=== PATIENT | female | born 1945 | race Caucasian/White ===

== ENCOUNTER → 2019-11-18 10:11 | Outpatient (BNVA) | payer MEDICARE, SELFPAY | PROVIDERS: Family Provider Family Medicine; PCP Family Medicine; Visit Provider Nurse Practitioner Family | DX: M25.561 Pain in right knee (principal); M22.41 Chondromalacia patellae, right knee | CPT/HCPCS: 73562 ==

== ENCOUNTER → 2020-01-02 09:02 | Outpatient (BNVA) | payer MEDICARE, SELFPAY | PROVIDERS: Family Provider Family Medicine; PCP Family Medicine; Visit Provider Family Medicine | DX: E78.5 Hyperlipidemia, unspecified (principal); F41.1 Generalized anxiety disorder; I10 Essential (primary) hypertension; E55.9 Vitamin D deficiency, unspecified; R53.83 Other fatigue; J44.9 Chronic obstructive pulmonary disease, unspecified; Z72.0 Tobacco use; N18.9 Chronic kidney disease, unspecified; H61.22 Impacted cerumen, left ear; E78.2 Mixed hyperlipidemia; N18.3 Chronic kidney disease, stage 3 (moderate) | CPT/HCPCS: 80053; 80061; 82652; 85025 ==

== ENCOUNTER → 2020-08-01 10:05 | Outpatient (BNVA) | payer MEDICARE, SELFPAY | PROVIDERS: Family Provider Family Medicine; PCP Family Medicine; Visit Provider Family Medicine | DX: Z23 Encounter for immunization (principal); F41.1 Generalized anxiety disorder; J44.9 Chronic obstructive pulmonary disease, unspecified; E55.9 Vitamin D deficiency, unspecified; R53.83 Other fatigue; I12.9 Hypertensive chronic kidney disease with stage 1 through stage 4 chronic kidney disease, or unspecified chronic kidney disease; N18.30 Chronic kidney disease, stage 3 unspecified; E78.5 Hyperlipidemia, unspecified | CPT/HCPCS: 80053; 82652; 83540; 83735; 84100; 85025 ==

== ENCOUNTER → 2020-12-25 09:05 | Outpatient (BNVA) | payer MEDICARE, SELFPAY | PROVIDERS: Family Provider Family Medicine; PCP Family Medicine; Visit Provider Family Medicine | DX: Z12.39 Encounter for other screening for malignant neoplasm of breast (principal); F41.1 Generalized anxiety disorder; E78.5 Hyperlipidemia, unspecified; E78.2 Mixed hyperlipidemia; Z12.11 Encounter for screening for malignant neoplasm of colon; M19.041 Primary osteoarthritis, right hand; M19.042 Primary osteoarthritis, left hand; Z86.010 Personal history of colon polyps; Z12.31 Encounter for screening mammogram for malignant neoplasm of breast; N18.30 Chronic kidney disease, stage 3 unspecified | CPT/HCPCS: 80053; 80061 ==

== ENCOUNTER 2021-01-16 14:58 | Outpatient (CLI) | payer MEDICARE, SELFPAY ==
--- NOTE | 2021-01-16 15:30 | MM_ITS ---
WS: [id number] Bilateral screening digital mammogram, 01/16/2021 Clinical Data: Z12.39 - Encounter for other screening for malignant neoplasm of breast Comparison: 12/22/2018. Findings: The breast parenchymal pattern shows fat replacement. No spiculated masses or clustered calcification s are seen. There are no secondary signs of carcinoma. MM/[place] [id number] Impression: 1. Negative bilateral mammogram unchanged. 2. Recommend annual screening mammograms. BIRADS: 1-Negative FOLLOW UP: 1 Year Follow-up The CAD store clerk checker was used.
== END 2021-01-16 14:59 | disposition home or self-care (01) ==
LOC: RADSHAW 15:00
PROVIDERS: PCP Family Medicine; Visit Provider Family Medicine
DX: Z12.39 Encounter for other screening for malignant neoplasm of breast (principal)
CPT/HCPCS: 77067

== ENCOUNTER → 2021-01-25 15:25 | Outpatient (BNVA) | payer MEDICARE, SELFPAY | PROVIDERS: PCP Family Medicine; Visit Provider Surgery | DX: Z86.010 Personal history of colon polyps (principal); Z20.822 Contact with and (suspected) exposure to COVID-19 | CPT/HCPCS: 87635 ==

== ENCOUNTER 2021-01-31 08:49 | Day surgery (SDC) | payer MEDICARE, SELFPAY ==
[2021-01-29 17:19] VITALS: BMI 32.5
--- NOTE | 2021-01-31 09:21 | ANES.PREANE2 ---
Pre-Anesthetic Assessment Pre-Anesthetic Assessment: Height/Weight: Height 1.6 m Weight 83.461 kg Preop Diagnosis: screening colonoscopy Proposed Procedure: Operation Date: 01/31/21 10:30 Proposed Procedures p Colonoscopy 19682 Z86.010(Not Applicable) - Mir Antonio MD Was Beta Lizeth taken within 24 hours: N/A Was Clonidine taken within 24 hours: N/A Social: Social History: Tobacco and No alcohol Exam: Pre-Anes Outpt Exam: alert, oriented x 3 and regular rate & rhythm Additional Exam Findings (including area of procedure): Scattered late expiratory wheezes; clear post tussive Airway: Submandibular: WNL Cervical ROM: WNL MP: 1 CV/HEM: CV/HEM: None reported : : Chronic renal Insufficiency Hepatic: Hepatic: None reported GI: GI: None reported Metabolic: Metabolic: Hyperlipidemia Musc/skel: Musc/skel: None reported Neuropsych: Neuropsych: None reported Anesthetic Plan: ASA status: 3 Anesthesia: MAC PFSH Anesthesia PFSH: Medical History CKD (chronic kidney disease) NAHED (generalized anxiety disorder) Hx of adenomatous polyp of colon Hyperlipidemia Hypertension Vitamin D deficiency Surgical History H/O neck surgery Branchial cyst removal Status post colonoscopy with polypectomy Family History Father Cancer lung Family/Other Cancer sister-breast Denies family history of Anesthesia complication Bleeding disorder Social History Smoking and tobacco status: current every day smoker cigarettes Packs smoked per day: 0.25 Quit status (tobacco): not considering quitting Second hand smoke exposure: No Alcohol intake: current Alcohol intake frequency: holidays/special occasions only Desire information about alcohol rehabilitation?: No Desire information about substance/drug rehabilitation?: No History of recent travel: No Data Anesthesia Cardiac Studies: No Data to Display
[2021-01-31 09:49] VITALS: BP 137/86; PULSE 68; RESP 18; TEMP 36; O2SAT 96
[2021-01-31] MEDS: sodium chloride 0.9% 1,000 ML 30 ML IV (09:59)
--- NOTE | 2021-01-31 10:02 | PC.NURSE ---
Dentures placed in denture cup, put with personal belongings. Jewelry given to .
--- NOTE | 2021-01-31 10:35 | W.PM.OPSUD ---
Surgery/Procedure H&P Update DATE OF PROCEDURE: January 31, 2021 DATE H&P PERFORMED: 01/08/21 H&P UPDATE INFORMATION: I have reviewed H&P completed within last 30 days, I have examined patient prior to procedure and No changes to prior documentation PREOP DIAGNOSIS: screening colonoscopy PLANNED PROCEDURE: Operation Date: 01/31/21 10:30 Proposed Procedures p Colonoscopy 90962 Z86.010(Not Applicable) - Mir Antonio MD
--- NOTE | 2021-01-31 11:56 | ANE.PACU2 ---
Inpatient post-anesthesia follow up: Airway intact: Yes Vital signs: Temperature 96.8 F Pulse Rate 68 Respiratory Rate 18 Blood Pressure 137/86 Pulse Oximetry 96 Oxygen Delivery Me thod Room Air Oxygen Flow Rate Fraction of Inspir ed Oxygen Hydration adequate: Yes Nausea and vomiting: No Pain level: 1 Mental status: Baseline
[2021-01-31 11:57] VITALS: BP 129/75; PULSE 58; RESP 16; TEMP 36.1; O2SAT 94
[2021-01-31 12:09] VITALS: BP 125/66; PULSE 54; RESP 16; O2SAT 96
== END 2021-01-31 12:22 | disposition home or self-care (01) ==
PROVIDERS: PCP Family Medicine; Visit Provider Surgery
PROC: 0DJD8ZZ Inspection of Lower Intestinal Tract, Via Natural or Artificial Opening Endoscopic (ICD-10-PCS; CPT 45378; principal; 2021-01-31 10:30)
DX: Z12.11 Encounter for screening for malignant neoplasm of colon (principal); Z86.010 Personal history of colon polyps; I12.9 Hypertensive chronic kidney disease with stage 1 through stage 4 chronic kidney disease, or unspecified chronic kidney disease; N18.9 Chronic kidney disease, unspecified; F41.9 Anxiety disorder, unspecified; E78.5 Hyperlipidemia, unspecified; E55.9 Vitamin D deficiency, unspecified; F17.210 Nicotine dependence, cigarettes, uncomplicated; K57.30 Diverticulosis of large intestine without perforation or abscess without bleeding
CPT/HCPCS: 45385; 88305; 96360; 96361; J2704; J7030

== ENCOUNTER → 2021-06-25 09:39 | Outpatient (BNVA) | payer MEDICARE, SELFPAY | PROVIDERS: Family Provider Family Medicine; PCP Family Medicine; Visit Provider Family Medicine | DX: N18.30 Chronic kidney disease, stage 3 unspecified (principal) | CPT/HCPCS: 80053; 85025 ==

== ENCOUNTER → 2021-10-29 11:30 | Outpatient (BNVA) | payer MEDICARE, SELFPAY | PROVIDERS: Family Provider Family Medicine; PCP Family Medicine; Visit Provider Nurse Practitioner Family | DX: Z20.822 Contact with and (suspected) exposure to COVID-19 (principal) | CPT/HCPCS: 87635 ==

== ENCOUNTER → 2021-12-24 10:32 | Outpatient (BNVA) | payer MEDICARE, SELFPAY | PROVIDERS: Family Provider Family Medicine; PCP Family Medicine; Visit Provider Family Medicine | DX: I10 Essential (primary) hypertension (principal); F41.1 Generalized anxiety disorder; M19.041 Primary osteoarthritis, right hand; M19.042 Primary osteoarthritis, left hand; E78.2 Mixed hyperlipidemia; R00.2 Palpitations; R00.1 Bradycardia, unspecified | CPT/HCPCS: 80053; 80061; 83735; 84443; 85025 ==

== ENCOUNTER → 2022-01-01 09:30 | Outpatient (BNVA) | payer MEDICARE, SELFPAY | PROVIDERS: Family Provider Family Medicine; PCP Family Medicine; Visit Provider Internal Medicine Cardiovascular Disease | DX: I49.3 Ventricular premature depolarization (principal); E78.2 Mixed hyperlipidemia; I12.9 Hypertensive chronic kidney disease with stage 1 through stage 4 chronic kidney disease, or unspecified chronic kidney disease; N18.30 Chronic kidney disease, stage 3 unspecified; Z87.891 Personal history of nicotine dependence; I49.1 Atrial premature depolarization; I47.1 Supraventricular tachycardia | CPT/HCPCS: 93225; 99204 ==

== ENCOUNTER 2022-02-14 09:06 | Outpatient (CLI) | payer MEDICARE, SELFPAY ==
[2022-02-14 09:23] VITALS: BMI 32.9
--- NOTE | 2022-02-14 09:24 | NMCV_ITS ---
NM asia perf SPECT r/s* [id number] Cassie Nolasco Age: 76 Gender: F : 1945 Exam Date: 02/14/2022 10:48 Ordering Phys: Caryl Orosco MD ([email or web address]) Technologist: BUBBA Moses Exam Location: [facility] Indications: CHEST PAIN STRESS TEST Please see separate stress test report in [facility] for full findings IMAGE PROTOCOL Rest/Stress 1 Lexiscan Day Radiopharmaceutical Dose (mCi) Administration Site Administered by Rest: Tc-99m 10.5 IV BUBBA Garsia Sestamibi Stress:Tc-99m 32.7 IV BUBBA Garsia Sestamibi Rest: 14-Feb-2022 60 Discovery 630 Stress: 14-Feb-2022 30 Discovery 630 0.4mg Lexiscan. Images obtained in supine and prone position. SPECT RESULTS Technical Quality: Excellent Raw Data Analysis: Normal Image Corrections: No attenuation or motion correction applied Summed Stress Score: 6 Summed Rest Score: 12 Summed Difference Score: 0 PERFUSION FINDINGS Medium sized perfusion abnormality of moderate severity of basal to apical inferior, mid inferoseptal and apical lateral dejesus on rest images with slightly improved tracer uptake in inferior and inferoseptal dejesus on supine stress images. Prone images with some reversibility in mid to apical anterior dejesus. FUNCTIONAL RESULTS (calculated via Gated SPECT) Stress Image LV EF (%): 52 Stress EDV (mL):151 TID: 0.93 Stress ESV (mL):73 FUNCTIONAL FINDINGS: The left ventricle is normal in size. Transient Ischemia Dilatation of 0.93. There is mildly reduced left ventricular systolic function. The left ventricular ejection fraction is mildly reduced with a value of 52%. There is hypokinesis of mid to apical inferior dejesus. Increased end diastolic volume. IMPRESSIONS 1. Medium sized perfusion abnormality of basal to apical inferior, mid inferoseptal and apical lateral dejesus with slightly improved tracer uptake in inferior dejesus. This may represent attenuation artifact or old infarction. 2. Small sized reversible ischemia in mid to apical anterior dejesus on prone images likely represents attenuation artifact, however small left anterior descending artery ischemia cannot be ruled out. 3.The left ventricular ejection fraction is mildly reduced with a value of 52%. 4. There is hypokinesis of mid to apical inferior dejesus. 5. EKG portion of the study will be reported separately. Caryl Orosco MD (Electronically Signed) Final Date: 15 February 2022 18:16 S
--- NOTE | 2022-02-14 09:24 | ECG_ITS ---
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 Interpretive Statements NAME OF STUDY: LEXISCAN SESTAMIBI STRESS TEST INDICATION: Chest Pain, PROCEDURE: At the baseline, the EKG revealed sinus bradycardia with a rate of 56 bpm. Poor R wave progression. Some nonspecific ST changes.. The baseline blood pressure was 118/69 mm Hg with a heart rate of beats/min. Lexiscan was infused over a period of 20 seconds. A total of 0.4 milligrams of Lexiscan was infused. The stress phase was continued for a total of 5 minutes. Heart rate at the end of the stress phase was 70 with a blood pressure 108/81 mmHg. The EKG at the peak infusion revealed no significant changes frequent ventricular ectopics were noted, during the recovery phase. Sestamibi was injected 20 seconds after the Lexiscan infusion. Blood pressure at the end of the recovery phase was 102/50 with a heart rate of 70 per minute. CONCLUSION: 1. No significant EKG changes with the LexiScan infusion 2. No LexiScan induced chest pain.occasional ventricular ectopics were noted during the Lexiscan infusion . 3. Normal blood pressure and heart rate response 4. Sestamibi/sestamibi perfusion scan pending; see separate report. Electronically Signed On 02-14-2022 13:38:20 CDT by Wendy Coello M.D. [email or web address]
[2022-02-14 11:45] VITALS: BP 102/50; PULSE 69
== END 2022-02-14 09:07 | disposition home or self-care (01) ==
LOC: CDL 09:08
PROVIDERS: PCP Family Medicine; Visit Provider Internal Medicine Cardiovascular Disease
DX: R07.9 Chest pain, unspecified (principal)
CPT/HCPCS: 78452; 93017; A9500

== ENCOUNTER 2022-02-24 13:24 | Outpatient (CLI) | payer MEDICARE, SELFPAY ==
--- NOTE | 2022-02-24 13:33 | MM_ITS ---
WS: [id number] BILATERAL 3D TOMOSYNTHESIS DIGITAL SCREENING MAMMOGRAPHY WITH CAD CLINICAL INFORMATION: SCREEN HISTORY: Screening mammogram. No current complaints. COMPARISON: January 16, 2021 TECHNIQUE: Bilateral CC and MLO views. FINDINGS: Scattered fibroglandular densities bilaterally. A few tiny incidental punctate calcifications. No le picious focal mass, asymmetry, calcifications, or architectural distortion. No evidence of malignancy . MM/[place] [id number] IMPRESSION: BI-RADS: 2-Benign FOLLOW UP: 1 Year Follow-up Recommend return to annual screening mammography.
== END 2022-02-24 13:25 | disposition home or self-care (01) ==
LOC: RAD 13:25
PROVIDERS: PCP Family Medicine; Visit Provider Family Medicine
DX: Z12.31 Encounter for screening mammogram for malignant neoplasm of breast (principal)
CPT/HCPCS: 77063; 77067

== ENCOUNTER 2022-02-26 08:30 | Outpatient (CLI) | payer MEDICARE, SELFPAY ==
--- NOTE | 2022-02-26 09:30 | USCV_ITS ---
Gaurav Cassie Age: 76 Gender: F : 1945 Exam Date: 02/26/2022 08:41 Ordering Phys: Caryl Orosco MD ([email or web address]) Technologist: Exam Location: [facility] [place] Indication: Chest pain BP: 117 / 74 HR: 56 Rhythm: Sinus Technical Quality: Adequate MEASUREMENTS (Male / Female) Normal Values 2D ECHO LV Diastolic Diameter PLAX 4.6 cm 4.2 - 5.9 / 3.9 - 5.3 cm LV Systolic Diameter PLAX 2.9 cm IVS Diastolic Thickness 1.1 cm 0.6 - 1.0 / 0.6 - 0.9 cm IVS Systolic Thickness 1.3 cm LVPW Diastolic Thickness 1.1 cm 0.6 - 1.0 / 0.6 - 0.9 cm LVPW Systolic Thickness 1.4 cm LVOT Diameter 2.0 cm LV Ejection Fraction 2D Teich 66.2 % LV Ejection Fraction MOD 2C 66.8 % LV Ejection Fraction 2C AL 67.0 % LA Diameter 3.7 cm Aorta at Sinotubular Diameter 2.8 cm IVC Diameter 1.4 cm M-MODE LV Diastolic Diameter MM 4.9 cm 4.2 - 5.9 / 3.9 - 5.3 cm LV Systolic Diameter MM 2.9 cm LV Ejection Fraction MM Teich 70.2 % IVS Diastolic Thickness MM 1.2 cm 0.6 - 1.0 / 0.6 - 0.9 cm IVS Systolic Thickness MM 1.7 cm LVPW Diastolic Thickness MM 1.1 cm 0.6 - 1.0 / 0.6 - 0.9 cm LVPW Systolic Thickness MM 1.8 cm RV Diastolic Diameter MM 1.4 cm Aortic Annulus Diameter 3.6 cm LA Ao Ratio MM 1.1 MV E Point Septal Separation 2.3 cm DOPPLER AV Peak Velocity 132.0 cm/s LVOT Peak Velocity 81.0 cm/s AV Area Cont Eq vti 2.2 cm squared AV Area Cont Eq pk 2.0 cm squared MV Area PHT 3.2 cm squared Mitral E to A Ratio 0.8 MV E' Velocity 44.5 cm/s Mitral E to MV E' Ratio 9.6 Mitral E to LV E' Lateral Ratio 9.3 Mitral E to LV E' Septal Ratio 10.1 TR Peak Velocity 184.7 cm/s TR Peak Gradient 13.6 mmHg TV Peak E Velocity 109.0 cm/s Right Atrial Pressure 3.0 mmHg Pulmonary Artery Systolic Pressu 16.6 mmHg PV Peak Velocity 94.0 cm/s FINDINGS Left Ventricle Normal left ventricular size, systolic function and wall thickness, with no regional wall motion abnormalities. Left ventricular ejection fraction is estimated at 55 %. Normal diastolic function. Right Ventricle Normal right ventricular size and systolic function. Right ventricular systolic pressure 16.6 mmHg. Right Atrium Normal right atrial size. Left Atrium Mildly increased left atrial size. Mitral Valve Structurally normal mitral valve. No mitral valve stenosis. Trace mitral valve regurgitation. Aortic Valve Structurally normal trileaflet aortic valve. No aortic valve stenosis. No aortic valve regurgitation. Tricuspid Valve Structurally normal tricuspid valve. Trace tricuspid valve regurgitation. Pulmonic Valve Structurally normal pulmonic valve. No pulmonary valve stenosis. Trace pulmonary valve regurgitation. Pericardium No pericardial effusion. Aorta Normal size aortic root and proximal ascending aorta. IVC Normal inferior vena cava. CONCLUSIONS 1. Normal left ventricular size, systolic function and wall thickness, with no regional wall motion abnormalities. Left ventricular ejection fraction is estimated at 55 %. Normal diastolic function. 2. Normal right ventricular size and systolic function. 3. No prior similar studies to compare. Caryl Orosco MD (Electronically Signed) Final Date: 02 March 2022 18:56 S
== END 2022-02-26 08:31 | disposition home or self-care (01) ==
LOC: RAD 08:32
PROVIDERS: PCP Family Medicine; Visit Provider Internal Medicine Cardiovascular Disease
DX: R06.02 Shortness of breath (principal); R00.1 Bradycardia, unspecified
CPT/HCPCS: 93306

== ENCOUNTER → 2022-04-14 15:13 | Outpatient (BNVA) | payer MEDICARE, SELFPAY | PROVIDERS: PCP Family Medicine; Visit Provider Internal Medicine Cardiovascular Disease | DX: I12.9 Hypertensive chronic kidney disease with stage 1 through stage 4 chronic kidney disease, or unspecified chronic kidney disease (principal); I49.3 Ventricular premature depolarization; R94.39 Abnormal result of other cardiovascular function study; Z87.891 Personal history of nicotine dependence | CPT/HCPCS: 99214 ==

== ENCOUNTER → 2022-04-17 11:45 | Outpatient (BNVA) | payer MEDICARE, SELFPAY | PROVIDERS: PCP Family Medicine; Visit Provider Internal Medicine Cardiovascular Disease | DX: R06.02 Shortness of breath (principal); R07.9 Chest pain, unspecified; R94.39 Abnormal result of other cardiovascular function study | CPT/HCPCS: 80048; 85025; 85610 ==

== ENCOUNTER 2022-04-22 06:00 | Outpatient (CLI) | payer MEDICARE, SELFPAY ==
[2022-04-22] VITALS (44 sets, daily range): BP systolic 123–167; BP diastolic 60–100; PULSE 41–74; RESP 12–24; TEMP 36.8; O2SAT 92–98; BMI 35.2
--- NOTE | 2022-04-22 06:00 | XACV_ITS ---
Exam Room: 2 Ht: 160 cm Wt: 90 kg BSA: 2.04 m2 Gender: Female : 1945 Any Known Allergies: Sulfa Exam Priority: Routine Procedure(s): Procedure Description: Diagnostic procedure Procedure Description: Left ventriculography Procedure Description: Coronary Angiography Diagnostic Cath Status: Elective Diagnostic Findings * 76-year-old woman with past medical history of hypertension, frequent PVCs and NSVT with 31% PVC burden on Holter monitor and PSVT. Stress test with possible reversible ischemia in mid to apical anterior dejesus. . * Angiography shows a right coronary dominant system. * Normal caliber left main free of any disease. * Medium caliber left anterior descending artery with no disease. * Medium caliber circumflex artery with one major high obtuse marginal branch. Mid circumflex with mild 30% stenosis.. * Medium caliber dominant right coronary artery with * minor luminal irregularities in proximal segment. Conclusions 1. Angiography shows a right coronary dominant system. 2. Mild coronary artery disease in mid circumflex artery. 3. Minor luminal irregularities in proximal right coronary artery. Recommendations * Statin and aspirin 81mg lifelong, if tolerated. Diagnostic RX Recommendation: medical therapy and/or counseling LV EDP: 12 mmHg Left Ventriculography Findings: * Left Ventriculogram not performed to minimize contrast use. Pressures Phase:Rest AO : 159 / 76 ( 105 ) @ 8:22:00 AM 171 / 57 ( 107 ) @ 8:30:00 AM 161 / 39 ( 100 ) @ 8:30:00 AM LV : 155 / 0 / 12 @ 8:30:00 AM 153 / 1 / 14 @ 8:30:00 AM Valves Phase:DefaultPhase AV : 0.0 @ 7:37:17 AM AV Mean Gradient: 0.0 @ 7:37:17 AM Clinical Evaluation EBL: 5mL-10mL Procedural Details Pre-Procedure Time Out. Identified patient by full name and date of as verbalized by the patient/guarantor. Does the consent match the physician's order: Yes. Accurate & Complete Informed Consent: Yes. Inpatient/Outpatient History & Physical on Chart: Yes. If H&P is completed, is and addenduem needed: No. Visualize and Verify Site with Patient/Guarantor: N/A. Relevant Radiology Images available: Yes. Pre-op teaching completed and patient verbalized understanding. The risks, benefits, and alternatives of sedation and/or procedure were discussed by physician. The patient agrees to continue. Procedure started. [facility] Clinical Fraility Score: 3: Managing Well. Stacker Operator Indications: Other; Abnormal stress test/PVCs. Chest Pain Symptom Assessment: Asymptomatic. Cardiovascular Instability: No. Correct patient, site and procedure confirmed by cath team. PERRLA. Strong, equal hand gold buyer bilaterally. Lungs clear x 5 lobes. IV Site on Arrival: 20 gauge in the right anticubital. IV Fluids: 0.9% NaCl at KVO. 0 mL infused prior to agriculture laborer. Pre Procedural Pulses: bilateral dorsalis pedis was 2+. Pre Procedural Pulses: bilateral posterior tibial was 2+. Pre Procedural Pulses: bilateral radial was 3+. Oxygen started at 2liters/min via nasal canula. right groin was prepped with chloroprep then draped in the usual sterile fashion. right radial was prepped with chloroprep then draped in the usual sterile fashion. Physician notified. Physician arrived. Patient's family in CPRU. Dr. Orosco will update at the completion of the procedure. Physician scrubbed in. Immediate Pre-Procedure Time Out. Correct Patient: Yes; Correct Procedure: Yes; Correct Site: Yes; Correct Patient Position: Yes; Correct Supplies: Yes; Dried Flammable Prep: Yes; Blood Products Available: N/A;. Lidocaine 1% infiltrated to the right radial. Arterial access obtained. A 5 new zealander TIG catheter in over wire. Baseline sample Acquired. HR: 62 BPM. Multiple views taken of left coronary artery. Catheter redirected to the RCA. Multiple views taken of right coronary artery. Catheter redirected to the LV. EDP Sample taken: LV 155/0,12; HR: 65 BPM; SpO2: 97%. Pullback taken: LV 153/1,14; AO 171/57(107); Mean: 0mmHg, Peak to Peak: 0mmHg, SEP: 5sec/min; HR: 52 BPM; SpO2: 97%. Catheter removed over the standard wire. Dr. Orosco scrubbed out. TR band placed. Hemostasis obtained. Post Procedure: Pulses reassessed and unchanged. PERRLA. Strong, equal hand gold buyer bilaterally. No VTE prophylaxis required. Medication's Wasted: Lidocaine 1% = 2 mL. Medication's Wasted: Nitro = 49.8 mg. Medication's Wasted: Heparin = 1000 units. Total IV fluids: 30 mL. A TR Band was successful obtaining hemostatsis at the Right Radial artery insertion site. Post-op diagnosis: Normal Coronaries. Complications: none. Estimated blood loss: 5mL-10mL. Responsiveness - Normal response to verbal stimuli; alert and oriented, PERRLA. Airway - Unaffected, no intervention required; spontaneous ventilation. Circulation: W/N/L, pulses unchanged. Nausea/Vomiting: No. Procedure completed. Patient transferred by wheelchair to 1st floor. Vital chart was stopped. Access Site Site: Right Radial artery Sheath Size: 6 Fr Hemostasis Method: TR Band Hemostasis Success: Successful Procedure Medications Start: 7:13 AM Stop: 7:13 AM Medication: Versed Amount: 1 mg Route: I.V. Start: 7:13 AM Stop: 7:13 AM Medication: Fentanyl Amount: 50 mcg Route: I.V. Start: 7:18 AM Stop: 7:18 AM Medication: Nitrogylcerin Amount: 200 mcg Route: I.A. Start: 7:21 AM Stop: 7:21 AM Medication: Heparin Amount: 5000 units Route: I.V. I, the attending physician, have reviewed and verified all procedure medications. Yes, all medications given per verbal order History/Risk Factors Hypertension: Yes Dyslipidemia: Yes Peripheral Arterial Disease (PAD): No Myocardial Infarction (OR): No Obesity: Yes Renal Disease: No Tobacco Use: Former Prior Interventions PCI: No CABG: No Valve Surgery: No Report Signatures Finalized by Caryl Orosco MD on 05/03/2022 12:58 PM
[2022-04-22] MEDS: diphenhydrAMINE 50 mg Capsule PO (06:46)
--- NOTE | 2022-04-22 07:04 | W.PM.OPSUD ---
Surgery/Procedure H&P Update DATE OF PROCEDURE: April 22, 2022 DATE H&P PERFORMED: 04/14/22 H&P UPDATE INFORMATION: I have reviewed H&P completed within last 30 days, I have examined patient prior to procedure and No changes to prior documentation PREOP DIAGNOSIS: Abnormal stress test, NSVT and frequent PVC's PRIMARY INDICATION FOR PROCEDURE: Abnormal stress test, NSVT, frequent PVC's PLANNED PROCEDURE: Operation Date: 04/22/22 07:00 Proposed Procedures p Left Cardiac Catheterization w/wo 68287,R94.39,R07.9,R06.02(Left) - Caryl Orosco MD PATIENT REASSESSED PRIOR TO SEDATION, WITH NO CHANGE NOTED: Yes PHYSICAL EXAM: alert, oriented x 3, clear to auscultation bilaterally and regular rate & rhythm AIRWAY EVAL/ANESTHESIA PLAN: normal airway, ASA III, Monitored Anesthesia, Local Anesthesia, Risks, benefits & alternatives of sedation and/or procedure discussed and Patient agrees to continue as planned
[2022-04-22] MEDS: sodium chloride 0.9% 1,000 ML 100 ML IV (07:45)
--- NOTE | 2022-04-22 07:58 | PC.NURSE ---
received from cardiac laborer gold leaf via w/c at 0745.report received.pt is alert and awake and oriented x 4.sr with occas pvc on monitor.pt denies pain.right radial tr band is on and inflated.right hand is warm to touch and with brisk capillary refill.no hematoma noted.palpable radial pulse noted distal to tr band.pt oriented to room environment.pt instructed in activity restrictions s/p radial artery procedure...and instructed to notify staff for any bleeding,pain,numbness,sob...or for any concern at all.pt verb understanding of instructions.
[2022-04-22] MEDS: metoprolol tartrate 25 mg Tablet 12.5 MG PO (11:51)
--- NOTE | 2022-04-22 13:34 | PC.NURSE ---
trband slowly deflated and finally removed at 1200.right hand remains warm to touch and with brisk capillary refill.no hematoma formation noted.palpable radial pulse noted.site dressed with 2x2 and secured with biocclusive drsg.pt instructed in activity restrictions s/p tr band removal...and instructed to notify staff for any bleeding,pain,bruising..or for any concerns at all.pt verb understanding of instructions.
--- NOTE | 2022-04-22 15:32 | PC.NURSE ---
discharge instructions given and explained.pt verb understanding of instructions.discharged via w/c to exit at this time.spouse to drive pt home.
== END 2022-04-22 15:44 | disposition home or self-care (01) ==
LOC: CCL 06:05 → CSU 08:43
PROVIDERS: PCP Family Medicine; Visit Provider Internal Medicine Cardiovascular Disease
DX: I25.10 Atherosclerotic heart disease of native coronary artery without angina pectoris (principal); I12.9 Hypertensive chronic kidney disease with stage 1 through stage 4 chronic kidney disease, or unspecified chronic kidney disease; N18.30 Chronic kidney disease, stage 3 unspecified; E78.5 Hyperlipidemia, unspecified; E66.9 Obesity, unspecified; Z68.35 Body mass index [BMI] 35.0-35.9, adult; Z87.891 Personal history of nicotine dependence; F41.9 Anxiety disorder, unspecified; E55.9 Vitamin D deficiency, unspecified; I49.3 Ventricular premature depolarization
CPT/HCPCS: 36415; 93452; 96360; 99152; 99153; C1769; C1887; C1894; J1644; J2250; J3010; J3490; J7030; Q0163; Q9967

== ENCOUNTER → 2022-04-29 13:22 | Outpatient (BNVA) | payer MEDICARE, SELFPAY | PROVIDERS: PCP Family Medicine; Visit Provider Nurse Practitioner Family | DX: I12.9 Hypertensive chronic kidney disease with stage 1 through stage 4 chronic kidney disease, or unspecified chronic kidney disease (principal); N18.9 Chronic kidney disease, unspecified; Z87.891 Personal history of nicotine dependence | CPT/HCPCS: 99214 ==

== ENCOUNTER → 2022-05-27 09:55 | Outpatient (BNVA) | payer MEDICARE, SELFPAY | PROVIDERS: PCP Family Medicine; Visit Provider Family Medicine | DX: S99.921A Unspecified injury of right foot, initial encounter (principal); X58.XXXA Exposure to other specified factors, initial encounter; M10.9 Gout, unspecified; N18.30 Chronic kidney disease, stage 3 unspecified | CPT/HCPCS: 73630; 80053; 84550 ==

== ENCOUNTER → 2022-05-29 15:21 | Outpatient (BNVA) | payer MEDICARE, SELFPAY | PROVIDERS: PCP Family Medicine; Visit Provider Internal Medicine Cardiovascular Disease | DX: I49.3 Ventricular premature depolarization (principal); I12.9 Hypertensive chronic kidney disease with stage 1 through stage 4 chronic kidney disease, or unspecified chronic kidney disease; N18.9 Chronic kidney disease, unspecified; Z87.891 Personal history of nicotine dependence; I25.10 Atherosclerotic heart disease of native coronary artery without angina pectoris; R94.31 Abnormal electrocardiogram [ECG] [EKG] | CPT/HCPCS: 93005; 99214 ==

== ENCOUNTER 2022-06-03 13:46 | Outpatient (CLI) | payer MEDICARE, SELFPAY ==
--- NOTE | 2022-06-03 14:00 | USCV_ITS ---
Cassie Nolasco Age: 76 Gender: F : 1945 Exam Date: 06/03/2022 14:31 Ordering Phys: Merline Marie DO Technologist: Ricky Araiza [place] [facility] [place] Indication: swollen leg PROCEDURES: Venous duplex imaging was performed in only the right lower extremity. In addition, the posterior tibial and peroneal trunk were evaluated. Serial compression, augmentation maneuvers, and spectral Doppler flow evaluation were performed. FINDINGS: Normal 2-D Doppler and augmentation and compressibility throughout the lower extremity venous structures. Additional imaging through the proximal calf veins also reveals no thrombus. Limited evaluation of the greater saphenous vein is patent with no thrombus.. CONCLUSIONS No evidence of right lower extremity DVT. Sheldon Calzada MD (Electronically Signed) Final Date: 04 June 2022 10:07 S
== END 2022-06-03 13:47 | disposition home or self-care (01) ==
PROVIDERS: PCP Family Medicine; Visit Provider Emergency Medicine
DX: M79.89 Other specified soft tissue disorders (principal)
CPT/HCPCS: 93971

== ENCOUNTER → 2022-09-29 12:44 | Outpatient (BNVA) | payer MEDICARE, SELFPAY | PROVIDERS: PCP Family Medicine; Visit Provider Nurse Practitioner Family | DX: Z20.822 Contact with and (suspected) exposure to COVID-19 (principal) | CPT/HCPCS: 87426 ==

== ENCOUNTER → 2022-11-20 10:41 | Outpatient (BNVA) | payer MEDICARE, SELFPAY | PROVIDERS: PCP Family Medicine; Visit Provider Family Medicine | DX: I10 Essential (primary) hypertension (principal); E78.2 Mixed hyperlipidemia | CPT/HCPCS: 80053; 80061 ==

== ENCOUNTER → 2022-11-27 13:03 | Outpatient (BNVA) | payer MEDICARE, SELFPAY | PROVIDERS: PCP Family Medicine; Visit Provider Nurse Practitioner Family | DX: I25.10 Atherosclerotic heart disease of native coronary artery without angina pectoris (principal); Z87.891 Personal history of nicotine dependence; I12.9 Hypertensive chronic kidney disease with stage 1 through stage 4 chronic kidney disease, or unspecified chronic kidney disease; N18.9 Chronic kidney disease, unspecified; Z79.82 Long term (current) use of aspirin | CPT/HCPCS: 99214 ==

== ENCOUNTER 2023-02-26 10:26 | Outpatient (CLI) | payer MEDICARE, SELFPAY ==
--- NOTE | 2023-02-26 10:43 | MM_ITS ---
WS: [id number] BILATERAL SCREENING DIGITAL TOMOSYNTHESIS MAMMOGRAM WITH CAD HISTORY: SCREENING COMPARISON: 02/24/2022 and 01/16/2021 Bilateral CC and MLO views with tomosynthesis and synthetic mammography submitted. Computer aided det ection analyzed. Breast composition: There are scattered areas of fibroglandular density. No suspicious masses, microc alcifications or architectural distortion. MM/[place] [id number] IMPRESSION: BI-RADS: 1-Negative FOLLOW UP: 1 Year Follow-up
== END 2023-02-26 10:27 | disposition home or self-care (01) ==
PROVIDERS: PCP Family Medicine; Visit Provider Family Medicine
DX: Z12.31 Encounter for screening mammogram for malignant neoplasm of breast (principal); M25.571 Pain in right ankle and joints of right foot; M25.471 Effusion, right ankle; Z87.39 Personal history of other diseases of the musculoskeletal system and connective tissue
CPT/HCPCS: 73610; 77063; 77067; 80048; 84550

== ENCOUNTER → 2023-05-28 10:34 | Outpatient (BNVA) | payer MEDICARE, SELFPAY | PROVIDERS: PCP Family Medicine; Visit Provider Internal Medicine Cardiovascular Disease | DX: I10 Essential (primary) hypertension (principal) | CPT/HCPCS: 80053; 99214 ==

== ENCOUNTER 2023-08-04 13:05 | Outpatient (CLI) | payer MEDICARE, SELFPAY ==
--- NOTE | 2023-08-04 13:30 | XR_ITS ---
WS: [id number] SCREENING DEXA SCAN [facility] CLINICAL INFORMATION: Z78.0 - Asymptomatic menopausal state COMPARISON: 2019 FINDINGS: The L1-L4 bone mineral density measures 1.222 g/cm2. This corresponds to a T score score of 0.3 and Z score of 1.0. Left femoral neck bone mineral density measures 0.805 g/cm2. This corresponds to a T score of -1.6 an d Z score of -0.5. Right femoral neck bone mineral density measures 0.891 g/cm2. This corresponds to a T score -0.9of an d Z score of 0.2. Mean femoral neck bone mineral density measures 0.848 g/cm2. This corresponds to a T score of -1.3 an d Z score of -0.2. IMPRESSION: Normal bone mineralization lumbar spine. Osteopenia femoral necks. Patient's FRAX calculated 10 year probability for major osteoporotic fracture is 29.6% and osteoporot ic hip fracture is 19.5%. Bone mineral density lumbar spine increased 7.1% Bone mineral density femoral necks decreased -0.9%
== END 2023-08-04 13:06 | disposition home or self-care (01) ==
LOC: RAD 13:05
PROVIDERS: PCP Family Medicine; Visit Provider Family Medicine
DX: Z13.820 Encounter for screening for osteoporosis (principal); Z78.0 Asymptomatic menopausal state; M85.88 Other specified disorders of bone density and structure, other site
CPT/HCPCS: 77080

== ENCOUNTER → 2023-10-13 14:47 | Outpatient (BNVA) | payer MEDICARE, SELFPAY | PROVIDERS: PCP Family Medicine; Visit Provider Family Medicine | DX: I49.8 Other specified cardiac arrhythmias (principal) | CPT/HCPCS: 93005 ==

== ENCOUNTER → 2023-11-25 13:02 | Outpatient (BNVA) | payer MEDICARE, SELFPAY | PROVIDERS: PCP Family Medicine; Visit Provider Internal Medicine Cardiovascular Disease | DX: I12.9 Hypertensive chronic kidney disease with stage 1 through stage 4 chronic kidney disease, or unspecified chronic kidney disease (principal); N18.9 Chronic kidney disease, unspecified; E78.2 Mixed hyperlipidemia; Z72.0 Tobacco use; I49.3 Ventricular premature depolarization; F41.1 Generalized anxiety disorder | CPT/HCPCS: 99214 ==

== ENCOUNTER 2024-02-29 11:46 | Outpatient (CLI) | payer MEDICARE, SELFPAY ==
--- NOTE | 2024-02-29 12:00 | MM_ITS ---
WS: [id number] BILATERAL 3D TOMOSYNTHESIS DIGITAL SCREENING MAMMOGRAPHY WITH CAD CLINICAL INFORMATION: Z12.39 - Encounter for other screening for malignant neop... HISTORY: Screening mammogram. No current complaints. COMPARISON: 2022 TECHNIQUE: Bilateral CC and MLO views. FINDINGS: Scattered fibroglandular densities bilaterally. No suspicious focal mass, asymmetry, calcifications, or architectural distortion. No evidence of malignancy. MM/[place] [id number] IMPRESSION: BI-RADS: 1-Negative FOLLOW UP: 1 Year Follow-up Recommend return to annual screening mammography.
== END 2024-02-29 11:47 | disposition home or self-care (01) ==
LOC: RAD 11:46
PROVIDERS: PCP Family Medicine; Visit Provider Family Medicine
DX: Z12.31 Encounter for screening mammogram for malignant neoplasm of breast (principal); R92.323 Mammographic fibroglandular density, bilateral breasts
CPT/HCPCS: 77063; 77067

== ENCOUNTER → 2024-03-14 10:47 | Outpatient (BNVA) | payer MEDICARE, SELFPAY | PROVIDERS: PCP Family Medicine; Visit Provider Nurse Practitioner Family | DX: L30.9 Dermatitis, unspecified (principal); L57.0 Actinic keratosis; L21.8 Other seborrheic dermatitis; L73.8 Other specified follicular disorders; L72.0 Epidermal cyst; L81.4 Other melanin hyperpigmentation; Z85.828 Personal history of other malignant neoplasm of skin | CPT/HCPCS: 17000; 99204 ==

== ENCOUNTER → 2024-04-11 09:02 | Outpatient (BNVA) | payer MEDICARE, SELFPAY | PROVIDERS: PCP Family Medicine; Visit Provider Nurse Practitioner Family | DX: L30.9 Dermatitis, unspecified (principal); L21.8 Other seborrheic dermatitis; Z85.828 Personal history of other malignant neoplasm of skin | CPT/HCPCS: 99214 ==

== ENCOUNTER → 2024-05-12 10:03 | Outpatient (BNVA) | payer MEDICARE, SELFPAY | PROVIDERS: PCP Family Medicine; Visit Provider Family Medicine | DX: I10 Essential (primary) hypertension; E78.2 Mixed hyperlipidemia; I25.10 Atherosclerotic heart disease of native coronary artery without angina pectoris | CPT/HCPCS: 80053; 80061 ==

== ENCOUNTER → 2024-05-24 10:07 | Outpatient (BNVA) | payer MEDICARE, SELFPAY | PROVIDERS: PCP Family Medicine; Visit Provider Nurse Practitioner Family | DX: I25.10 Atherosclerotic heart disease of native coronary artery without angina pectoris (principal); I10 Essential (primary) hypertension; Z87.891 Personal history of nicotine dependence | CPT/HCPCS: 99214 ==

== ENCOUNTER 2024-09-10 11:53 | Emergency (ER) | payer MEDICARE, SELFPAY ==
[2024-09-10 11:55] VITALS: BP 125/72; PULSE 95; RESP 16; TEMP 37.6; O2SAT 92; BMI 37.2
--- NOTE | 2024-09-10 12:00 | XRR_ITS ---
PROCEDURE INFORMATION: Exam: XR Chest Exam date and time: 09/10/2024 12:28 PM Age: 78 years old Clinical indication: Cough TECHNIQUE: Imaging protocol: Radiologic exam of the chest. Views: 1 view. COMPARISON: No relevant prior studies available. FINDINGS: Tubes, catheters and devices: None. Lungs: Linear density identified within bilateral lower lungs. The lungs appear otherwise clear. Pleural spaces: No pleural effusion. No pneumothorax. Heart/Mediastinum: The cardiac silhouette appears borderline prominent. Vasculature: Tortuous and ectatic aorta is demonstrated. Mild atherosclerotic calcification demonstrated within the aorta. Bones/joints: Moderate to severe degenerative disc disease in the spine. Soft tissues: This study is limited by patient's body habitus. XR/XR chest 1V portable [id number] IMPRESSION: 1. Borderline prominence of the cardiac silhouette. 2. Linear bilateral lower chest pulmonary atelectasis, or scarring.
--- NOTE | 2024-09-10 12:35 | ED_ITS ---
HPI - URI/Sore Throat General: Chief Complaint: Upper Respiratory Infection Stated Complaint: congestion Time Seen by Provider: 09/10/24 12:27 Source: patient Mode of arrival: ambulatory Limitations: no limitations History of Present Illness: 78-year-old female states over the last 2 days she has had cough congestion body aches along with a fever states she had been around family for [employer] belie ves she is caught a viral bug states her temp was 101 this morning she taken Tylenol states she feels improved currently. Denies any severe dyspnea Associated symptoms: Reports chills and fever(s); Deny abdominal pain, chest pain, diarrhea, headache(s), nausea or vomiting Related Data Home Medications Medication Instructions Recorded Confirmed cholecalciferol (vitamin D3) 50 50 mcg PO DAILY 01/01/22 09/10/24 mcg (2,000 unit) capsule aspirin 81 mg tablet,delayed 81 mg PO DAILY 02/17/22 09/10/24 release (Adult Aspirin Regimen) magnesium 200 mg tablet 200 mg PO DAILY 03/03/22 09/10/24 citalopram 20 mg tablet 20 mg PO DAILY 09/10/24 09/10/24 lovastatin 20 mg tablet 20 mg PO DAILY 09/10/24 09/10/24 potassium chloride 10 mEq 10 meq PO BID 09/10/24 09/10/24 capsule,extended release Previous Rx's Medication Instructions Recorded hydrochlorothiazide 25 mg tablet 25 mg PO DAILY 90 days #90 tabs 05/12/24 lisinopril 10 mg tablet 10 mg PO DAILY 90 days #90 tabs 05/12/24 oseltamivir 75 mg capsule (Tamiflu) 75 mg PO BID 5 days #10 caps 09/10/24 Allergies Allergy/AdvReac Type Severity Reaction Status Date / Time allopurinol Allergy Intermediate ALGY-Hives Verified 09/10/24 11:59 Sulfa (Sulfonamide Allergy Unknown ALGY-Rash Verified 09/10/24 11:59 Antibiotics) Review of Systems Const: Reports: fever(s), chills and body aches; Denies: change in appetite Eyes: Denies: blurry vision or eye discomfort ENMT: Denies: throat pain or dental pain Card: Denies: chest pain Resp: Reports: non-productive cough; Denies: dyspnea GI: Denies: abdominal pain, nausea, vomiting or diarrhea Musc: Denies: neck pain or back pain Skin/Breast: Denies: rash Neuro: Denies: headache(s) PFSH ED PFSH: Medical History Personal history of gout CAD (coronary artery disease) CKD (chronic kidney disease) Previous triamterene?hydrochlorothiazide discontinued due to worsening renal function Vitamin D deficiency NAHED (generalized anxiety disorder) Hyperlipidemia Hypertension Hx of adenomatous polyp of colon Surgical History Status post colonoscopy with polypectomy (01/31/21) Diverticulosis, sigmoid polyps H/O neck surgery Branchial cyst removal Family History Father Cancer lung Family/Other No problems noted. Brother , 56 y/o [place] Myocardial infarct Grandmother Stroke Sister Cancer Social History Smoking and tobacco/nicotine status: former use of tobacco/nicotine Second hand smoke exposure: No Alcohol intake: current Alcohol intake frequency: holidays/special occasions only Substance/Drug Use: never Female Reproductive History: Spontaneous abortions: No Physical Exam Const: COMMON NORMALS: no acute distress, patient oriented x3 and healthy appearing HENMT: COMMON NORMALS: normocephalic and atraumatic HEAD & SCALP: normocephalic and atraumatic MOUTH: Normal oral and palatal mucosa present THROAT: posterior oropharynx normal Eye: COMMON NORMALS: Equal, round and reactive pupils present and EOMs intact bilaterally PUPIL: Yes Equal, round and reactive pupils present Neck/C-Spine: COMMON NORMALS: full ROM and supple Chest: COMMONS NORMALS: normal inspection of the chest Resp: COMMON NORMALS: normal respiratory effort, No retractions, No use of accessory muscles and clear to auscultation bilaterally AUSCULTATION: clear to auscultation bilaterally Cardio: COMMON NORMALS: regular rate, regular rhythm and No murmurs present (Cardio) RATE: regular rate RHYTHM: regular rhythm Extremity: COMMON NORMALS: normal to inspection and full ROM Neuro: COMMON NORMALS: patient oriented x3, moves all extremities and no focal motor deficits Psych: COMMON NORMALS: mental status grossly normal, Normal thought process present and cooperative THOUGHT PROCESS: Normal thought process present Skin: COMMON NORMALS: no rashes or lesions noted and no wounds GENERAL SKIN EXAM: no rashes or lesions noted Course Vital Signs: Vital signs: Vital Signs Temperature 99.7 F H 09/10/24 11:55 Pulse Rate 95 09/10/24 11:55 Respiratory Rate 16 09/10/24 11:55 Blood Pressure 125/72 09/10/24 11:55 Pulse Oximetry 92 09/10/24 11:55 Oxygen Delivery Me thod Room Air 09/10/24 11:55 MDM - URI/Sore Throat Medical Decision Making Patient presents with cough congestion fever did test positive for influenza chest x-ray shows no pneumonia will start on Tamiflu she is follow-up with PCP return if worsening. Medical Records I reviewed the patient's medical records. Lab Data I reviewed the patient's lab results. Laboratory Results Coronavirus (PCR) Negative (Negative) 09/10/24 12:01 Influenza A (PCR) Positive (Negative) 09/10/24 12:01 Influenza Type B (PCR) Negative (Negative) 09/10/24 12:01 RSV (PCR) Negative (Negative) 09/10/24 12:01 All radiology interpretation(s) finalized by discharge Discharge Plan Discharge Patient Disposition: Home Clinical Impression: Influenza Condition: Stable Prescriptions: New oseltamivir [Tamiflu] 75 mg capsule 75 mg PO BID 5 Days Qty: 10 0RF No Action magnesium 200 mg tablet 200 mg PO DAILY hydrochlorothiazide 25 mg tablet 25 mg PO DAILY 90 Days Qty: 90 2RF lisinopril 10 mg tablet 10 mg PO DAILY 90 Days Qty: 90 3RF cholecalciferol (vitamin D3) 50 mcg (2,000 unit) capsule 50 mcg PO DAILY aspirin [Adult Aspirin Regimen] 81 mg tablet,delayed release (DR/EC) 81 mg PO DAILY potassium chloride 10 mEq capsule, extended release 10 meq PO BID citalopram 20 mg tablet 20 mg PO DAILY lovastatin 20 mg tablet 20 mg PO DAILY Discharge Orders: Discharge ED (Routine); Ordered 09/10/24 Ordered By: Samuel Christensen Referrals: Yoselin Hernandez MD [Primary Care Provider] - 4-7 days Discharge Diet: Advance as tolerated Discharge Activity: Resume usual activity Patient Instructions: Influenza (ED) Coding Level of Care Code ED Cooperative Education Coordinator for [facility]
[2024-09-10 12:40] LABS: Covid PCR NEGATIVE (Negative); Influenza A POSITIVE (Negative); Influenza B NEGATIVE (Negative); Respiratory Syncytial Virus Ce NEGATIVE (Negative)
[2024-09-10 14:05] VITALS: BP 101/68; PULSE 86; O2SAT 94
== END 2024-09-10 14:07 | disposition home or self-care (01) ==
PROVIDERS: Emergency Provider Emergency Medicine; PCP Family Medicine
DX: J10.1 Influenza due to other identified influenza virus with other respiratory manifestations (principal); Z11.52 Encounter for screening for COVID-19; Z87.891 Personal history of nicotine dependence; I25.10 Atherosclerotic heart disease of native coronary artery without angina pectoris; I12.9 Hypertensive chronic kidney disease with stage 1 through stage 4 chronic kidney disease, or unspecified chronic kidney disease; N18.9 Chronic kidney disease, unspecified; E78.5 Hyperlipidemia, unspecified
CPT/HCPCS: 71045; 87637; 99284

== ENCOUNTER → 2024-10-10 08:03 | Outpatient (BNVA) | payer MEDICARE, SELFPAY | PROVIDERS: PCP Family Medicine; Visit Provider Nurse Practitioner Family | DX: L71.0 Perioral dermatitis (principal); L21.8 Other seborrheic dermatitis; L82.1 Other seborrheic keratosis; Q83.3 Accessory nipple; L85.3 Xerosis cutis | CPT/HCPCS: 99213 ==

== ENCOUNTER → 2024-12-20 15:47 | Outpatient (BNVA) | payer MEDICARE, SELFPAY | PROVIDERS: PCP Family Medicine; Visit Provider Internal Medicine Cardiovascular Disease | DX: I25.10 Atherosclerotic heart disease of native coronary artery without angina pectoris (principal); R00.1 Bradycardia, unspecified; I12.9 Hypertensive chronic kidney disease with stage 1 through stage 4 chronic kidney disease, or unspecified chronic kidney disease; N18.9 Chronic kidney disease, unspecified; Z79.82 Long term (current) use of aspirin; Z87.891 Personal history of nicotine dependence; I65.23 Occlusion and stenosis of bilateral carotid arteries | CPT/HCPCS: 99214 ==

== ENCOUNTER 2024-12-28 10:43 | Outpatient (CLI) | payer MEDICARE, SELFPAY ==
--- NOTE | 2024-12-28 10:45 | USCV_ITS ---
Gaurav Cassie Age: 79 Gender: F : 1945 Exam Date: 12/28/2024 11:15 Ordering Phys: Dieudonne Viramontes MD ([email or web address]) Technologist: RADHA Exam Location: [facility] [place] Indication: bilateral stenosis Risk Factors: Previous Vascular Surgery: Right Brachial BP: / Left Brachial BP: / Right Left Velocity (cm/s) Spectral Plaque Velocity (cm/s) Spectral Plaque Syst/Diast Broadening Syst/Diast Broadening 75.30/ 16.20 Prox CCA 92.50 / 22.50 67.30/ 18.60 Mid CCA 86.10 / 24.60 62.00/ 16.70 Distal CCA 88.70 / 21.20 47.30/ 13.70 Prox ICA 56.30 / 23.30 49.80/ 22.60 Mid ICA 63.20 / 22.70 51.10/ 18.50 Distal ICA 62.50 / 26.00 52.20 ECA 76.40 0.80 ICA/CCA 0.60 Antegrade Vertebral Antegrade 34.90/ 10.90 cm/s 34.90/ 13.40 cm/s Tri Subclavian Tri 69.60 161.4 0 FINDINGS Comparison: none available. No significant elevation of systolic or diastolic velocities. Mild carotid tortuosity and scattered plaque. Antegrade vertebral arteries. CONCLUSIONS Bilateral ICA stenosis less than 50%. Dr. Jennifer Regalado DO (Electronically Signed) Final Date: 28 December 2024 12:07 S
== END 2024-12-28 10:44 | disposition home or self-care (01) ==
LOC: RAD 10:45
PROVIDERS: PCP Family Medicine; Visit Provider Internal Medicine Cardiovascular Disease
DX: I65.23 Occlusion and stenosis of bilateral carotid arteries (principal)
CPT/HCPCS: 93880

== ENCOUNTER → 2025-04-24 09:39 | Outpatient (BNVA) | payer MEDICARE, SELFPAY | PROVIDERS: PCP Family Medicine; Visit Provider Family Medicine | DX: I10 Essential (primary) hypertension (principal); E78.2 Mixed hyperlipidemia; N18.30 Chronic kidney disease, stage 3 unspecified | CPT/HCPCS: 80053; 80061; 85025 ==

== ENCOUNTER → 2025-08-14 14:23 | Outpatient (BNVA) | payer MEDICARE, SELFPAY | PROVIDERS: PCP Family Medicine; Visit Provider Family Medicine | DX: R68.89 Other general symptoms and signs (principal) | CPT/HCPCS: 87400; 87426 ==

== ENCOUNTER 2025-08-22 12:50 | Outpatient (CLI) | payer MEDICARE, SELFPAY ==
--- NOTE | 2025-08-22 13:00 | XR_ITS ---
WS: [id number] DEXA (DUAL ENERGY X-RAY ABSORPTIOMETRY) Bone mineral density was performed using a [employer] machine. HISTORY: Z78.0 - Asymptomatic menopausal state COMPARISON: 08/04/2023 Lumbar spine BMD (L1-L4): 1.177 g/cm2 T score: 0.0 Z score: 0.7 Total hip BMD: Left: 0.773 g/cm2. T score: -1.9 Z score: -0.6 Right: 0.855 g/cm2. T score: -1.2 Z score: 0.1 10 year probability of a major osteoporotic fracture is 33.8%. Compared to the prior study from 08/04/2023. Lumbar spine bone mineral density has decreased by 3.7%. Bilateral hips bone mineral density has decreased by 4.0%. XR/XR DEXA axial skeleton* [id number] IMPRESSION: OSTEOPENIA based upon the WHO classification for females. Significant decrease in bone mineral density within the lumbar spine and hips s adis the prior study.
== END 2025-08-22 12:51 | disposition home or self-care (01) ==
LOC: RAD 12:51
PROVIDERS: PCP Family Medicine; Visit Provider Family Medicine
DX: Z13.820 Encounter for screening for osteoporosis (principal); M85.88 Other specified disorders of bone density and structure, other site
CPT/HCPCS: 77080